=== PATIENT | female | born 1960 | race Caucasian/White ===

== ENCOUNTER 2022-06-02 06:00 | Day surgery (SDC) | payer BC ==
[2022-06-02] MEDS: Lactated Ringers 1,000 ML IV SCH (06:16)
[2022-06-02] MEDS ORDERED: Xylocaine-Mpf 2% 5 Ml Vial ONE (07:29)
[2022-06-02] MEDS ORDERED: Versed 2 MG/2 ML Injection ONE (07:29)
[2022-06-02] MEDS ORDERED: DIPRIVAN 200 MG/20 ML IV ONE (07:29)
[2022-06-02 08:49] VITALS: O2SAT 95
[2022-06-02 09:10] VITALS: BP 124/78; PULSE 78
--- NOTE | 2022-06-02 11:57 | OP ---
SURGERY DATE/TIME: 06/02/2022 0727 PREOPERATIVE DIAGNOSES: 1) Gastroesophageal reflux. 2) Screening colonoscopy. POSTOPERATIVE DIAGNOSES: 1) Mild gastritis. 2) Small gastric polyp. 3) Sigmoid diverticulosis. PROCEDURES: 1) Esophagogastroduodenoscopy with cold forceps biopsy. 2) Colonoscopy. SURGEON: Dr. Donnie Kapoor. ANESTHESIA: Medications were given by the anesthesia department. HISTORY: The patient is a 61-year-old white female presenting now for screening colonoscopy and upper endoscopy for history of gastroesophageal reflux disease. The patient reports that her problems were getting worse recently but was changed over to Protonix and is improving. The patient was felt the need to have endoscopic evaluation. She was appraised the risks of the procedure including the risk of perforation, phlebitis, untoward reaction to medication, bleeding and missed lesions, sore throat, vocal cord injury. The patient verbalized her understanding and desired to have the procedure performed. DESCRIPTION OF PROCEDURE: The patient was given the medications by the anesthesia department. She had continuous pulse oximetry, ECG monitoring and intermittent blood pressure monitoring during the examination. She was placed in the left lateral decubitus position. A bite block was placed. The flexible Olympus gastroscope was used to intubate the oropharynx. A view of the larynx was obtained and was normal. The scope was easily introduced in the esophagus which appeared to be normal throughout its length. The stomach was entered where normal gastric rugal folds were seen. There was one small gastric polyp noted and this is biopsied using cold biopsy technique. The scope was passed along the greater curvature of the stomach to the antrum. The pylorus encountered and intubated. The duodenum inspected and found to be normal. The scope is withdrawn towards the stomach again. A retroflex view of the lesser curvature, fundus and cardia regions of the stomach appeared to be normal. Biopsies were obtained from the gastric antrum to rule out the presence of Helicobacter pylori organisms. The scope was then removed from the patient. Next, a digital rectal examination was performed and revealed normal anal sphincter tone and no masses. The flexible Olympus pediatric colonoscope was used to intubate the rectum. A view of the colon was developed sequentially to the cecum. Upon insertion and withdrawal was noted sigmoid diverticulosis which is considered to be mild to moderate in nature. The scope was removed from the patient who tolerated the procedure well and was sent back to OP recovery in good condition. The prep was noted to be fair.
== END 2022-06-02 09:10 | disposition home or self-care (01) ==
LOC: SDC 06:00
PROVIDERS: ATTEND Family Medicine
DX: Z12.11 Encounter for screening for malignant neoplasm of colon (principal); K21.9 Gastro-esophageal reflux disease without esophagitis; K29.70 Gastritis, unspecified, without bleeding; K31.7 Polyp of stomach and duodenum; K57.30 Diverticulosis of large intestine without perforation or abscess without bleeding
CPT/HCPCS: J2250; J2704